=== PATIENT | male | born 1975 | race Caucasian/White ===

== ENCOUNTER 2020-12-26 11:34 | Emergency (ER) | payer OTHER, SELFPAY ==
--- NOTE | 2020-12-26 11:41 | ED.WOUNDLAC ---
HPI - Wound/Laceration General Chief Complaint: Wound/Laceration Stated Complaint: cut left arm Source: patient and RN notes reviewed Mode of arrival: ambulatory Limitations: no limitations History of Present Illness HPI narrative: accidentally cut his left forearm on a piece of stainless steel as he was walking by it. Onset (ago): minute(s) (20) Extremity Location: Left: forearm Place: work Patient tetanus UTD: Yes Context: accidental Associated symptoms: none Treatments prior to arrival: bandage Related Data Allergies Allergy/AdvReac Type Severity Reaction Status Date / Time acetaminophen Allergy Mild vomit Verified 08/26/18 11:58 codeine Allergy Mild vomit Verified 08/26/18 11:58 hydrocodone Allergy Mild vomit Verified 08/26/18 11:58 Penicillins Allergy Mild vomit Verified 08/26/18 11:58 Review of Systems Review of Systems: All systems reviewed & are unremarkable except as noted in HPI and below PMFSH Past Medical History Medical History (Updated 12/26/20 @ 12:04 by Melvin Mckeon MD) Anxiety GERD (gastroesophageal reflux disease) Surgical History Surgical History (Updated 12/26/20 @ 11:51 by Melvin Mckeon MD) H/O thumb surgery left Social History Social History (Updated 12/26/20 @ 11:53 by Melvin Mckeon MD) Smoking packs per day: 2.5 Smoking cigarettes per day: 50.0 Smoking status: Current every day smoker Tobacco type: cigarettes Alcohol intake: current Substance use: current Substance use type: former substance user and marijuana Other substance usage details: quit cocaine 1 year ago Exam Const: General: healthy appearing and no acute distress Nutritional Appearance: well nourished and thin Orientation/consciousness: patient oriented x3 HENMT: Head: normal to inspection Ears: external ears normal Eyes: Conjunctivae: conjunctivae normal Pupils: Equal, round and reactive pupils present EOM: EOMs intact bilaterally Neck: Neck: normal visual inspection Resp: Effort & Inspection: normal respiratory effort Auscultation: clear to auscultation bilaterally Cardio: Rate: regular rate Rhythm: regular rhythm GI: GI Palp: Yes Soft to palpation and No Tenderness to palpation present (GI) Auscultation: normal bowel sounds Back/Spine/Pelvis: Cervical Spine: cervical ROM normal Thoracic/Lumbar Spine: thoraco-lumbar ROM normal Skin: General skin exam: normal color Rashes: no rashes Wounds: wounds noted laceration left palmar forearm size (6 cm) and margins well approximated and well defined Neuro: General: patient oriented x3, moves all extremities, no meningeal signs and no focal motor deficits Speech: normal speech Gait exam (Neuro): Normal gait present Extrem: General: normal to inspection and no clubbing, cyanosis or edema Psych: Appearance: grossly normal Mental Status: mental status grossly normal Affect: Anxious affect present Attitude: cooperative Thought content: Yes Normal thought content present Course Vital Signs Vital signs: Vital Signs Temperature 36.7 C 12/26/20 12:02 Pulse Rate 110 H 12/26/20 12:02 Respiratory Rate 14 12/26/20 12:02 Blood Pressure 134/81 12/26/20 12:02 Pulse Oximetry 99 12/26/20 12:02 Temperature 36.7 C 12/26/20 12:02 Pulse Rate 110 H 12/26/20 12:02 Respiratory Rate 14 12/26/20 12:02 Blood Pressure 134/81 12/26/20 12:02 Pulse Oximetry 99 12/26/20 12:02 Procedures Laceration Laceration 1: Date: 12/26/20 Site: upper extremity (forearm) Side (If applicable): left Description: linear Depth: simple, single layer ====== Skin Level ====== Skin layer closed with: dermabond and steri strips ====== Subcutaneous Layer ====== ====== Muscle Layer ====== ====== Tendon Layer ====== Discharge Plan Discharge Clinical Impression: Laceration Patient Disposition: Home, Self-Care Condition: Improved Instructions: Skin Adhesive
[2020-12-26 12:02] VITALS: BP 134/81; PULSE 110; RESP 14; TEMP 36.7; O2SAT 99
== END 2020-12-26 12:14 | disposition home or self-care (01) ==
PROVIDERS: Emergency Provider Emergency Medicine; PCP Family Medicine
DX: S51.812A Laceration without foreign body of left forearm, initial encounter (principal); W45.8XXA Other foreign body or object entering through skin, initial encounter
CPT/HCPCS: 12001; 99282